=== PATIENT | male | born 1970 | race Two or more races ===

== ENCOUNTER 2018-06-13 15:29 | Outpatient (CLI) | payer OTHER | END 2018-06-13 15:45 | disposition home or self-care (01) | LOC: RAD 15:29 | DX: M25.562 Pain in left knee (principal) ==

== ENCOUNTER 2018-06-13 18:32 | Outpatient (CLI) | payer OTHER | END 2018-06-13 19:00 | disposition home or self-care (01) | LOC: LAB 18:32 | DX: D64.89 Other specified anemias (principal); M06.4 Inflammatory polyarthropathy; M25.462 Effusion, left knee ==

== ENCOUNTER 2019-05-29 17:47 | Outpatient (CLI) | payer OTHER | END 2019-05-29 17:56 | disposition home or self-care (01) | LOC: RAD 17:47 | DX: M17.12 Unilateral primary osteoarthritis, left knee (principal) ==

== ENCOUNTER 2023-05-28 09:07 | Outpatient (CLI) | payer OTHER ==
[2023-05-28 09:53] LABS: HEMATOCRIT 44.1 % (39.0-48.0); HEMOGLOBIN 14.7 g/dL (13-16.00); MEAN CELL VOLUME 82.8 fL (80.0-100.00); MEAN CORPUSCULAR HEMOGLOBIN 27.7 pg (27.00-32.0); MEAN CORPUSCULAR HGB CONC 33.5 g/dl (32.0-36.0); PLATELET COUNT 438 K/uL (150-450); RED BLOOD COUNT 5.32 M/uL (4.00-6.00); RED CELL DISTRIBUTION WIDTH 14.4 % (11.5-14.5)
[2023-05-28 10:22] LABS: COL EPI 126 SECONDS (82-175)
[2023-05-28 10:23] LABS: BILIRUBIN TOTAL 0.32 mg/dL (0.3-1.2); CALCIUM 9.6 mg/dL (8.5-10.1); CREATININE SERUM 0.76 mg/dL (0.70-1.30); GFR 106.88; GLOBULINA 4.9 G/DL (2.4-3.5); POTASSIUM 3.36 mEq/L (3.5-5.1); TOTAL PROTEIN 8.9 gm/dL (6.4-8.2)
[2023-05-28 10:30] LABS: PROTHROMBIN TIME 10.5 SECONDS (9.0-11.5)
[2023-05-28 10:57] LABS: URINE APPEARANCE Clear; URINE BILIRRUBIN Negative (NEGATIVE); URINE BLOOD Trace; URINE COLOR Yellow; URINE GLUCOSE Negative (NEGATIVE); URINE LEUKOCYTE Negative; URINE NITRATE Negative; URINE PROTEIN Negative (NEGATIVE); URINE UROBILINOGEN 0.2 E.U./dl
[2023-05-28 11:01] LABS: URINE BACTERIA 8.8 uL (0.0-1933); URINE EPITHELIAL CELLS 5.4 uL (0.0-38.8); URINE RBC 12.3 uL (0.0-20.8); URINE WBC 6.6 uL (0.0-23.2)
== END 2023-05-28 09:08 | disposition home or self-care (01) ==
LOC: LAB 09:07
PROVIDERS: ATTEND Orthopaedic Surgery
DX: D64.9 Anemia, unspecified (principal); D68.8 Other specified coagulation defects; N39.0 Urinary tract infection, site not specified; Z22.322 Carrier or suspected carrier of Methicillin resistant Staphylococcus aureus; E88.89 Other specified metabolic disorders; I10 Essential (primary) hypertension; Z76.89 Persons encountering health services in other specified circumstances

== ENCOUNTER → 2023-07-27 08:59 | Outpatient (CLI) | payer OTHER ==
[2023-07-27 10:30] LABS: PH,URINE 7.5 (5.0-8.0); URINE APPEARANCE Clear; URINE BILIRRUBIN Negative (NEGATIVE); URINE BLOOD Negative; URINE COLOR Yellow; URINE GLUCOSE Negative (NEGATIVE); URINE LEUKOCYTE Negative; URINE NITRATE Negative; URINE PROTEIN Negative (NEGATIVE); URINE UROBILINOGEN 0.2 E.U./dl
[2023-07-27 10:30] LABS: HEMOGLOBIN 14.6 g/dL (13-16.00); MEAN CORPUSCULAR HEMOGLOBIN 27.8 pg (27.00-32.0); MEAN CORPUSCULAR HGB CONC 33.9 g/dl (32.0-36.0); PLATELET COUNT 462 K/uL (150-450); RED BLOOD COUNT 5.24 M/uL (4.00-6.00); RED CELL DISTRIBUTION WIDTH 14.6 % (11.5-14.5)
[2023-07-27 10:34] LABS: URINE RBC 6.6 uL (0.0-20.8)
[2023-07-27 10:54] LABS: INR 1.04; PARTIAL THROMBOPLASTIN TIME 31.8 SECONDS (22.0-34.0); PROTHROMBIN TIME 10.9 SECONDS (9.0-11.5)
[2023-07-27 10:59] LABS: COL EPI 87 SECONDS (82-175)
[2023-07-27 11:00] LABS: BILIRUBIN TOTAL 0.35 mg/dL (0.3-1.2); CALCIUM 9.3 mg/dL (8.5-10.1); CREATININE SERUM 0.77 mg/dL (0.70-1.30); GFR 105.28; GLOBULINA 4.5 G/DL (2.4-3.5); POTASSIUM 3.45 mEq/L (3.5-5.1); TOTAL PROTEIN 8.5 gm/dL (6.4-8.2)
[2023-07-27 11:13] LABS: URINE BACTERIA 3.7 uL (0.0-1933); URINE EPITHELIAL CELLS 0.4 uL (0.0-38.8); URINE WBC 1.6 uL (0.0-23.2)
== END | disposition home or self-care (01) ==
LOC: LAB 08:59
PROVIDERS: ATTEND Orthopaedic Surgery
DX: D64.9 Anemia, unspecified (principal); D68.8 Other specified coagulation defects; N39.0 Urinary tract infection, site not specified; Z20.822 Contact with and (suspected) exposure to COVID-19; E03.9 Hypothyroidism, unspecified; E11.9 Type 2 diabetes mellitus without complications; E55.9 Vitamin D deficiency, unspecified

== ENCOUNTER 2023-08-20 19:15 | Outpatient (CLI) | payer OTHER ==
[2023-08-20 20:59] LABS: SYNOVIAL FLUID APPEARANCE HAZY; SYNOVIAL FLUID COLOR YELLOW
[2023-08-20 21:00] LABS: MONONUCLEAR 33 %; POLYMORPHONUCLEAR 67 %
== END 2023-08-20 23:00 | disposition home or self-care (01) ==
LOC: LAB 19:15
PROVIDERS: ATTEND Orthopaedic Surgery
DX: M25.561 Pain in right knee (principal); M25.461 Effusion, right knee